=== PATIENT | female | born 1970 | race Caucasian/White ===

== ENCOUNTER 2016-11-25 14:17 | Emergency (ER) | payer BC ==
[2016-11-25 14:46] VITALS: BP 103/69; PULSE 93; TEMP 97.4; BMI 28.3
== END 2016-11-25 15:00 | disposition left against medical advice (07) ==
LOC: JER 14:17
DX: Z53.21 Procedure and treatment not carried out due to patient leaving prior to being seen by health care provider (principal)
CPT/HCPCS: 99281-25

== ENCOUNTER 2016-11-27 11:07 | Emergency (ER) | payer BC ==
[2016-11-27 12:05] VITALS: BP 104/61; PULSE 95; TEMP 98.6; BMI 28.3
--- NOTE | 2016-11-27 12:28 | PDOC ---
*Physical Exam - Vital Signs Last Vital Signs Temp Pulse Resp BP Pulse Ox 98.6 F 95 H 16 104/61 100 11/27/16 11:59 11/27/16 11:59 11/27/16 11:59 11/27/16 11:59 11/27/16 11:59 - Physical Exam Comments: 11/27/16 12:27 MIDLEVEL NOTE Pt seen by Midlevel Provider under my direct supervision. Pt interviewed and examined. Ancillary studies reviewed. I agree with plan as outlined by Midlevel Provider. 11/27/16 14:19 Patient feeling much better after fluid and medications On 11/25/16/she noted UTI symptoms, and she self medicated-she took 4 doses of Bactrim DS-she started herself on the medication when she was having UTI symptoms. Will switch to Macrobid Laboratory Results - last 24 hr 11/27/16 11/27/16 11/27/16 12:45 12:45 12:45 WBC 5.1 RBC 3.98 Hgb 12.3 Hct 36.7 MCV 92.3 MCHC 33.6 RDW 12.6 Plt Count 154 MPV 8.1 Neutrophils % 82.0 Lymphocytes % 7.0 L Monocytes % 4.0 Eosinophils % 2.0 Band Neutrophils 5.0 Sodium 136 Potassium 3.9 Chloride 105 Carbon Dioxide 24 Anion Gap 7 L BUN 6 L Creatinine 0.9 Creat Clearance w eGFR > 60 Random Glucose 91 Calcium 8.7 Magnesium 1.8 Total Bilirubin 0.3 AST 14 ALT 14 Alkaline Phosphatase 43 Total Protein 6.1 L Albumin 3.2 L Urine Color Yellow Urine Appearance Clear Urine pH 5.5 Ur Specific [place] >= 1.030 H Urine Protein Negative Urine Glucose (UA) Negative Urine Ketones Trace Urine Blood Trace H Urine Nitrite Negative Urine Bilirubin Negative Urine Urobilinogen 0.2 e.u/dl Ur Leukocyte Esterase Negative Urine RBC 0-3 Urine WBC 0-3 Ur Epithelial Cells Few Urine Bacteria Few Urine HCG, Qual Negative ED Treatment Course - LABORATORY CBC & Chemistry Diagram: 11/27/16 12:45 11/27/16 12:45 *DC/Admit/Observation/Transfer Diagnosis at time of Disposition: Dehydration UTI (urinary tract infection) Qualifiers: Qualified Code(s): N39.0 - Urinary tract infection, site not specified - Discharge Dispostion Disposition: HOME Condition at time of disposition: Stable - Prescriptions Prescriptions: Nitrofurantoin Monohyd/M-Cryst [Macrobid -] 100 mg PO BID #14 capsule - Patient Instructions Printed Discharge Instructions: DI for Urinary Tract Infection (UTI) Additional Instructions: rest, small frequent amounts of fluid throughout the day stop bactrim take macrobid as prescribed please follow up with your primary care physician within 5 days - Post Discharge Activity Work/School Note: Back to Work
[2016-11-27] MEDS ORDERED: KETOROLAC TROMETHAMINE 30 MG/1 ML VIAL IVPUSH ONE (12:32)
[2016-11-27] MEDS ORDERED: METOCLOPRAMIDE HCL INJECTION 10 MG/2 ML VIAL IVPB ONE (12:32)
[2016-11-27] MEDS ORDERED: SODIUM CHLORIDE 1,000 ML IV STA (12:32)
[2016-11-27] MEDS ORDERED: KETOROLAC TROMETHAMINE 30 MG/1 ML VIAL ONE (12:51)
[2016-11-27 13:16] LABS: MCHC 33.6 g/dl (32.0-36.0); MEAN CELL VOLUME 92.3 fl (80-96); MEAN PLT VOLUME 8.1 fl (7.5-11.1); PLATELET COUNT 154 K/MM3 (134-434); RDW 12.6 % (11.6-15.6); WHITE BLOOD COUNT 5.1 K/mm3 (4.0-10.0)
[2016-11-27 13:27] LABS: PH,URINE 5.5 (4.5-8); URINE APPEARANCE Clear; URINE BILIRUBIN Negative (NEGATIVE); URINE BLOOD TRACE (NEGATIVE); URINE COLOR YELLOW; URINE GLUCOSE (UA) Negative (NEGATIVE); URINE KETONE Trace (NEGATIVE); URINE LEUK ESTERASE Negative (NEGATIVE); URINE NITRITE Negative (NEGATIVE); URINE PROTEIN Negative (NEGATIVE); URINE RBC 0-3 /hpf (0-3); URINE UROBILINOGEN 0.2 E.U/dl (0.2-1.0)
[2016-11-27 13:28] LABS: URINE BACTERIA FEW /hpf (NEGATIVE); URINE WBC 0-3 (3-5)
[2016-11-27 13:36] LABS: ALBUMIN 3.2 g/dl (3.5-5.0); ALK PHOS 43 U/L (32-92); ANION GAP 7 (8-16); BILIRUBIN,TOTAL 0.3 mg/dl (0.2-1.0); CALCIUM 8.7 mg/dl (8.4-10.2); CO2 24 mmol/L (22-28); CREATININE 0.9 mg/dl (0.6-1.3); GLUCOSE,RANDOM 91 mg/dl (74-106); MAGNESIUM 1.8 mg/dL (1.8-2.4); SGOT/AST 14 U/L (10-42); SGPT/ALT 14 U/L (10-40); TOT PROT 6.1 g/dl (6.4-8.3)
--- NOTE | 2016-11-27 14:30 | PDOC ---
History of Present Illness - General Chief Complaint: Urinary Problem Stated Complaint: UTI Time Seen by Provider: 11/27/16 12:27 History Source: Patient - History of Present Illness Initial Comments: 11/27/16 14:27 patient is a 46y/o female with a past medical history of anxiety and depression. patient reports she developed lower back pain and urinary urgency on 11/25/16. she self medicated with bactrim. she reports the following she developed itiching to the eye that resolved. In addition, she reports fatigue and generalized bodyaches soon after that persists today patient denies any pruritis, sore throat, and rash. patient does reports headache to the left side of head which is similar to headaches of the past. 11/27/16 14:31 Past History - Past Medical History Allergies/Adverse Reactions: Allergies Allergy/AdvReac Type Severity Reaction Status Date / Time No Known Allergies Allergy Verified 11/27/16 11:12 Home Medications: Ambulatory Orders Bupropion HCl [Wellbutrin Sr] 150 mg PO DAILY 11/27/16 Methylphenidate HCl [Concerta] 36 mg PO DAILY 11/27/16 Nitrofurantoin Monohyd/M-Cryst [Macrobid -] 100 mg PO BID #14 capsule 11/27/16 Sulfamethoxazole/Trimethoprim [Bactrim DS -] 1 tab PO BID 11/27/16 Psychiatric Problems: Yes (ADHD, DEPRESSION) - Psycho/Social/Smoking Cessation Hx Anxiety: No Suicidal Ideation: No Smoking History: Never smoked Have you smoked in the past 12 months: No Number of Cigarettes Smoked Daily: 0 Information on smoking cessation initiated: No Hx Alcohol Use: No Drug/Substance Use Hx: No Substance Use Type: None Review of Systems - Review of Systems Able to Perform ROS?: Yes Constitutional: Yes: Malaise, Weakness ABD/GI: Yes: Nausea *Physical Exam - Vital Signs Last Vital Signs Temp Pulse Resp BP Pulse Ox 98.6 F 95 H 16 104/61 100 11/27/16 11:59 11/27/16 11:59 11/27/16 11:59 11/27/16 11:59 11/27/16 11:59 - Physical Exam General Appearance: Yes: Appropriately Dressed, Apparent Distress HEENT: positive: SORAIDA, Normal ENT Inspection, Normal Voice, Symmetrical, TMs Normal, Pharynx Normal Neck: positive: Trachea midline, Normal Thyroid, Supple Respiratory/Chest: positive: Lungs Clear, Normal Breath Sounds Cardiovascular: positive: Regular Rhythm, Regular Rate, S1, S2 Gastrointestinal/Abdominal: positive: Normal Bowel Sounds, Soft Musculoskeletal: positive: Normal Inspection. negative: CVA Tenderness, CVA Tenderness (R), CVA Tenderness (L) Extremity: positive: Normal Capillary Refill, Normal Inspection Integumentary: positive: Normal Color, Dry, Warm Neurologic: positive: circulation librarian II-XII NML intact, Fully Oriented, Alert, Normal Mood/ Affect, Normal Response, Motor Strength 03/14 ED Treatment Course - LABORATORY CBC & Chemistry Diagram: 11/27/16 12:45 11/27/16 12:45 - ADDITIONAL ORDERS Additional order review: Laboratory Results 11/27/16 11/27/16 12:45 12:45 Sodium 136 Potassium 3.9 Chloride 105 Carbon Dioxide 24 Anion Gap 7 L BUN 6 L Creatinine 0.9 Creat Clearance w eGFR > 60 Random Glucose 91 Calcium 8.7 Magnesium 1.8 Total Bilirubin 0.3 AST 14 ALT 14 Alkaline Phosphatase 43 Total Protein 6.1 L Albumin 3.2 L Urine Color Yellow Urine Appearance Clear Urine pH 5.5 Ur Specific [place] >= 1.030 H Urine Protein Negative Urine Glucose (UA) Negative Urine Ketones Trace Urine Blood Trace H Urine Nitrite Negative Urine Bilirubin Negative Urine Urobilinogen 0.2 e.u/dl Ur Leukocyte Esterase Negative Urine RBC 0-3 Urine WBC 0-3 Ur Epithelial Cells Few Urine Bacteria Few Urine HCG, Qual Negative 11/27/16 12:45 RBC 3.98 MCV 92.3 MCHC 33.6 RDW 12.6 MPV 8.1 Neutrophils % Y Lymphocytes % Y - Medications Given in the ED: ED Medications Discontinued Medications Generic Name Dose Route Start Last Admin Trade Name Freq PRN Reason Stop Dose Admin Sodium Chloride 1,000 mls @ 1,000 mls/hr 11/27/16 12:32 11/27/16 13:06 Normal Saline - IV 11/27/16 13:31 1,000 mls/hr ASDIR STA Administration Ketorolac Tromethamine 30 mg 11/27/16 12:32 11/27/16 13:07 Toradol Injection - IVPUSH 11/27/16 12:33 30 mg ONCE ONE Administration Metoclopramide HCl 10 mg 11/27/16 12:32 11/27/16 13:08 Reglan Injection - IVPB 11/27/16 12:33 10 mg ONCE ONE Administration Progress Note - Progress Note Progress Note: patient is a 46 y/o female that presents with generalized bodyaches, nausea and *DC/Admit/Observation/Transfer Diagnosis at time of Disposition: Dehydration UTI (urinary tract infection) Qualifiers: Urinary tract infection type: site unspecified Hematuria presence: without hematuria Qualified Code(s): N39.0 - Urinary tract infection, site not specified - Discharge Dispostion Disposition: HOME Condition at time of disposition: Stable Admit: No - Prescriptions Prescriptions: Nitrofurantoin Monohyd/M-Cryst [Macrobid -] 100 mg PO BID #14 capsule - Patient Instructions Printed Discharge Instructions: DI for Urinary Tract Infection (UTI) Additional Instructions: rest, small frequent amounts of fluid throughout the day stop bactrim take macrobid as prescribed please follow up with your primary care physician within 5 days - Post Discharge Activity Work/School Note: Back to Work
== END 2016-11-27 14:39 | disposition home or self-care (01) ==
LOC: FER 11:07
PROC: 3E0333Z Introduction of Anti-inflammatory into Peripheral Vein, Percutaneous Approach (ICD-10-PCS; principal; 2016-11-27)
PROC: 3E033GC Introduction of Other Therapeutic Substance into Peripheral Vein, Percutaneous Approach (ICD-10-PCS; 2016-11-27)
PROC: 3E0337Z Introduction of Electrolytic and Water Balance Substance into Peripheral Vein, Percutaneous Approach (ICD-10-PCS; 2016-11-27)
DX: N39.0 Urinary tract infection, site not specified (principal); E86.0 Dehydration; F41.8 Other specified anxiety disorders
CPT/HCPCS: 36415; 80053; 81003; 81015; 83735; 84703; 85025; 87086; 99283-25

== ENCOUNTER 2018-03-20 20:52 | Emergency (ER) | payer BC ==
[2018-03-20 21:08] LABS: PH,URINE 5.5 (4.5-8); URINE APPEARANCE Clear; URINE BILIRUBIN Negative (NEGATIVE); URINE GLUCOSE (UA) Negative (NEGATIVE); URINE KETONE Trace (NEGATIVE); URINE LEUK ESTERASE Negative (NEGATIVE); URINE NITRITE Positive (NEGATIVE); URINE PROTEIN Negative (NEGATIVE); URINE UROBILINOGEN 0.2 (0.2-1.0)
[2018-03-20 21:10] LABS: URINE COLOR YELLOW
[2018-03-20 21:12] VITALS: BP 111/60; PULSE 93; TEMP 97.3; BMI 28.3
[2018-03-20] MEDS ORDERED: NITROFURANTOIN MACROCRYSTAL 50 MG CAPSULE (FP) ONE (21:32)
--- NOTE | 2018-03-20 21:34 | PDOC ---
History of Present Illness - General History Source: Patient Exam Limitations: No Limitations - History of Present Illness Initial Comments: 03/20/18 21:52 The patient is a 47 year old female with a significant past medical history of UTIs, ADHD and depression who presents to the emergency department for evaluation of left eye and throat irritation since 6pm. The patient reports "scratchy left eye and throat" developed 1 hour after taking Bactrim around 5: 15pm for recently diagnosed UTI. The patient reports previous reaction to Bactrim for UTI 3-4 months ago with similar onset of symptoms, which remitted after a few hours. She states her concern for an allergic reaction prompted her to visit the ED for further evaluation. At presentation, the patient reports the scratching is in remission. She reports associated symptoms of headache and dysuria. The patient denies chest pain, abdominal pain, cough, shortness of breath, and dizziness. Denies fevers, chills, nausea, vomiting, diarrhea, and constipation. Denies urinary frequency, urgency, and hematuria. Allergies: NKDA Past surgical history: , tonsils, breast biopsy. Social history: No reported cigarette, alcohol, or drug use. PCP: Dr. Blanquita Wilde ([phone]) <Ayo Willis - Last Filed: 03/20/18 21:52> <Dave Sousa - Last Filed: 03/21/18 01:34> - General Chief Complaint: Urinary Problem Stated Complaint: UTI/MALAISE Past History <Ayo Willis - Last Filed: 03/20/18 21:52> - Past Medical History COPD: No Psychiatric Problems: Yes (ADHD, DEPRESSION) - Suicide/Smoking/Psychosocial Hx Smoking History: Never smoked Have you smoked in the past 12 months: No Number of Cigarettes Smoked Daily: 0 Hx Alcohol Use: No Drug/Substance Use Hx: No Substance Use Type: None <Dave Sousa - Last Filed: 03/21/18 01:34> - Past Medical History Allergies/Adverse Reactions: Allergies Allergy/AdvReac Type Severity Reaction Status Date / Time No Known Allergies Allergy Verified 11/27/16 11:12 Home Medications: Ambulatory Orders Bupropion HCl [Wellbutrin Sr] 150 mg PO DAILY 11/27/16 Gabapentin [Neurontin] 100 mg PO HS 03/20/18 Nitrofurantoin Monohyd/M-Cryst [Macrobid -] 100 mg PO BID #14 capsule 03/20/18 Review of Systems - Review of Systems Able to Perform ROS?: Yes Comments:: GENERAL/CONSTITUTIONAL: No fever or chills. No weakness. HEAD, EYES, EARS, NOSE AND THROAT: (+)Scratchy left eye. (+)Scratchy throat. No change in vision. No ear pain or discharge. CARDIOVASCULAR: No chest pain or shortness of breath. RESPIRATORY: No cough, wheezing, or hemoptysis. GASTROINTESTINAL: No nausea, vomiting, diarrhea or constipation. GENITOURINARY: (+)Dysuria. No urinary frequency or change in urination. MUSCULOSKELETAL: No joint or muscle swelling or pain. No neck or back pain. SKIN: No rash NEUROLOGIC: (+)Headache. No vertigo, loss of consciousness, or change in strength/sensation. ENDOCRINE: No increased thirst. No abnormal weight change. HEMATOLOGIC/LYMPHATIC: No anemia, easy bleeding, or history of blood clots. ALLERGIC/IMMUNOLOGIC: No hives or skin allergy. <Ayo Willis - Last Filed: 03/20/18 21:52> *Physical Exam - Vital Signs Last Vital Signs Temp Pulse Resp BP Pulse Ox 97.3 F L 93 H 16 111/60 98 03/20/18 20:53 03/20/18 20:53 03/20/18 20:53 03/20/18 20:53 03/20/18 20:53 - Physical Exam Comments: GENERAL: Awake, alert, and fully oriented, in no acute distress HEAD: No signs of trauma EYES: (+)injected conjunctiva. PERRLA, EOMI, sclera anicteric. ENT: Auricles normal inspection, hearing grossly normal, nares patent, oropharynx clear without exudates. Moist mucosa NECK: Normal ROM, supple, no lymphadenopathy, JVD, or masses LUNGS: Breath sounds equal, clear to auscultation bilaterally. No wheezes, and no crackles HEART: Regular rate and rhythm, normal S1 and S2, no murmurs, rubs or gallops ABDOMEN: Soft, nontender, normoactive bowel sounds. No guarding, no rebound. No masses EXTREMITIES: Normal range of motion, no edema. No clubbing or cyanosis. No cords, erythema, or tenderness NEUROLOGICAL: Cranial nerves II through XII grossly intact. Normal speech, normal gait SKIN: Warm, Dry, normal turgor, no rashes or lesions noted. <Ayo Willis - Last Filed: 03/20/18 21:52> - Vital Signs Last Vital Signs Temp Pulse Resp BP Pulse Ox 97.3 F L 93 H 16 111/60 98 03/20/18 20:53 03/20/18 20:53 03/20/18 20:53 03/20/18 20:53 03/20/18 20:53 <Dave Sousa - Last Filed: 03/21/18 01:34> ED Treatment Course - ADDITIONAL ORDERS Additional order review: Laboratory Results 03/20/18 03/20/18 21:00 21:00 Urine Color Yellow Urine Appearance Clear Urine pH 5.5 Ur Specific [place] 1.020 Urine Protein Negative Urine Glucose (UA) Negative Urine Ketones Trace Urine Blood Negative Urine Nitrite Positive Urine Bilirubin Negative Urine Urobilinogen 0.2 Ur Leukocyte Esterase Negative Urine HCG, Qual Negative - Medications Given in the ED: ED Medications Discontinued Medications Generic Name Dose Route Start Last Admin Trade Name Locq PRN Reason Stop Dose Admin Nitrofurantoin Macrocrystals 200 mg 03/20/18 21:45 03/20/18 21:35 Macrodantin - PO 200 mg ONCE JEZ Administration <Ayo Willis - Last Filed: 03/20/18 21:52> - ADDITIONAL ORDERS Additional order review: Laboratory Results 03/20/18 03/20/18 21:00 21:00 Urine Color Yellow Urine Appearance Clear Urine pH 5.5 Ur Specific [place] 1.020 Urine Protein Negative Urine Glucose (UA) Negative Urine Ketones Trace Urine Blood Negative Urine Nitrite Positive Urine Bilirubin Negative Urine Urobilinogen 0.2 Ur Leukocyte Esterase Negative Urine HCG, Qual Negative <Dave Sousa - Last Filed: 03/21/18 01:34> Medical Decision Making - Medical Decision Making 03/21/18 01:34 ? allg rxn to bactrim no rx for allg as symptom have mostly resolved switch abx to macrobid <Dave Sousa - Last Filed: 03/21/18 01:34> *DC/Admit/Observation/Transfer - Attestations Scribe Attestion: Documentation prepared by Ayo Willis, acting as medical anthropologist for Dave Sousa MD. <Ayo Willis - Last Filed: 03/20/18 21:52> <Dave Sousa - Last Filed: 03/21/18 01:34> Diagnosis at time of Disposition: UTI (urinary tract infection) Qualifiers: Urinary tract infection type: acute cystitis Hematuria presence: without hematuria Qualified Code(s): N30.00 - Acute cystitis without hematuria - Discharge Dispostion Disposition: HOME Condition at time of disposition: Stable - Prescriptions Prescriptions: Nitrofurantoin Monohyd/M-Cryst [Macrobid -] 100 mg PO BID #14 capsule - Referrals Referrals: Blanquita Wilde MD [Primary Care Provider] - - Patient Instructions - Post Discharge Activity
[2018-03-20] MEDS ORDERED: NITROFURANTOIN MACROCRYSTAL 50 MG CAPSULE (FP) PO SCH (21:45)
== END 2018-03-20 21:37 | disposition home or self-care (01) ==
LOC: FER 20:52
DX: N30.00 Acute cystitis without hematuria (principal); F90.9 Attention-deficit hyperactivity disorder, unspecified type; F32.9 Major depressive disorder, single episode, unspecified
CPT/HCPCS: 81003; 84703; 87086; 99281-25

== ENCOUNTER → 2018-07-21 | Day surgery (SDC) | payer BC ==
[~2018-07-21] MED LIST: DEXAMETHASONE SOD PHOSPHATE 4 MG/1 ML VIAL ONE; KETOROLAC TROMETHAMINE 30 MG/1 ML VIAL ONE; LIDOCAINE HCL 2% JELLY (5 ML/TUBE) ONE; LIDOCAINE HCL/PF 2% SDV 5ML VIAL ONE; MIDAZOLAM HCL 2 MG/2 ML SINGLE DOSE VIAL ONE; ONDANSETRON 4 MG/2 ML VIAL ONE; PROPOFOL 20 ML ONE
--- NOTE | 2018-07-21 16:20 | OP ---
DATE OF OPERATION: 07/21/2018 PREOPERATIVE DIAGNOSES: 1. Right breast mass at 9 o'clock, 1 cm from the nipple. 2. Left breast mass at 11 o'clock, 8 cm from the nipple. POSTOPERATIVE DIAGNOSES: 1. Right breast mass at 9 o'clock, 1 cm from the nipple. 2. Left breast mass at 11 o'clock, 8 cm from the nipple. PROCEDURE: Bilateral ultrasound-guided core biopsies with clip placement. ANESTHESIA: Local. ATTENDING SURGEON: Yasmin Martinez MD ESTIMATED BLOOD LOSS: Minimal. COMPLICATIONS: None. DESCRIPTION OF PROCEDURE: Patient was made aware of the risks and benefits of the procedure and consented. The left side was approached first. Under sterile conditions with 1% lidocaine for local anesthesia, a small anshu was made in the skin. Using a 13-gauge suction biopsy device biopsy via lateral approach, multiple cores were obtained and submitted to Pathology. Likewise, under ultrasound guidance, a U-shaped clip was placed into the biopsy region and well tolerated by the patient. Steri-Strips and sterile bandage were applied. The right side was then approached using a separate setup and gloves. Under sterile conditions with 1% lidocaine for local anesthesia, a small anshu was made in the skin. Using a 10-gauge suction biopsy device, under ultrasound guidance, multiple cores were obtained and submitted to Pathology completely removing the index lesion. Likewise, under ultrasound guidance, a bowtie clip was placed into the biopsy region. Steri-Strips and a sterile bandage were applied. Patient tolerated the procedure well. We will contact her with results. YASMIN MARTINEZ M.D. [id number]
--- NOTE | 2018-07-22 16:33 | PATH ---
Surgical Pathology Report Patient Name: MICHELE CHAMPAGNE [facility]. Rec. #: [id number] /Age/Gender: 1970 (Age: 48) / F Account: [id number] Location: [facility] Taken: 07/21/2018 Received: 07/21/2018 Reported: 07/22/2018 Physicians: Yasmin Martinez M.D. Specimen(s) Received A: BREAST CORE BIOPSY LEFT 11:00 8 CMFN B: BREAST CORE BIOPSY RIGHT 9:00 1 CMFN Clinical History No Nonpalpable lesion 07/21/2018 Ultrasound findings: Suspicious Final Diagnosis A. LEFT BREAST, 11:00, 8 CM FN, CORE BIOPSY: BREAST TISSUE WITH STROMAL FIBROSIS. B. RIGHT BREAST, 9:00, 1 CM FN, CORE BIOPSY: BREAST TISSUE SHOWING INTRADUCTAL PAPILLARY LESION WITH FOCAL SCLEROSIS AND ATYPIA. MICROCALCIFICATIONS PRESENT. Comment: Complete excision for definite classification of the lesion is suggested. Immunohistochemical stains performed and interpreted at [facility] show the following results: smooth muscle myosin heavy chain and p63 highlighted the myoepithelial cell layer surrounding the ducts in the sclerosing area. Electronically Signed Lisa Hobbs M.D. Gross Description A. Received in formalin labeled "left breast biopsy 11:00, 8 CMFN," is a 1.5 x 0.9 x 0.2 cm aggregate of multiple champagne-yellow, irregular to cylindrical portions of fibroadipose tissue. The formalin is filtered and the specimen is entirely submitted in one cassette. B. Received in formalin labeled "right breast biopsy 9:00, 1 CMFN," is a 2.4 x 1.6 x 0.3 cm aggregate of multiple champagne-yellow, irregular to cylindrical portions of fibroadipose tissue. The formalin is filtered and the specimen is entirely submitted in one cassette. Time to formalin fixation: Less than one minute Total formalin fixation time: Approximately 8 hours. 07/21/2018
== END | disposition home or self-care (01) ==
LOC: FRADUS-SUR 13:58
PROVIDERS: ATTEND Surgery Surgical Oncology
PROC: 0HBV3ZX Excision of Bilateral Breast, Percutaneous Approach, Diagnostic (ICD-10-PCS; principal; 2018-07-21)
DX: D24.2 Benign neoplasm of left breast (principal); N60.32 Fibrosclerosis of left breast; N64.89 Other specified disorders of breast; N63.22 Unspecified lump in the left breast, upper inner quadrant; N63.10 Unspecified lump in the right breast, unspecified quadrant
CPT/HCPCS: 19083; 19084; 87899; 88305-TC; 88341-TC; 88342-TC; A4648

== ENCOUNTER 2018-07-30 12:17 | Day surgery (SDC) | payer BC ==
[2018-07-24 13:51] VITALS: BMI 27.2
--- NOTE | 2018-07-28 09:34 | HP ---
Admitting History and Physical - Primary Care Physician PCP: Carlitos Grande - Admission Chief Complaint: right breast atypia History of Present Illness: 48 yo female underwent an MRI on 07/17/2018 and US which showed a right 9 and a left 11 density. The patient underwent US core bxs on 07/21 which was c/w right intraductal papillary lesion with atypia. Left core bx was negative. Patient is now presenting for a right WE with NL. History Source: Patient Limitations to Obtaining History: No Limitations - Past Medical History ...LMP Comment: 07/10/18 ...: No Psych: Yes: Depression - Past Surgical History Past Surgical History: Yes: - Smoking History Smoking history: Never smoked Have you smoked in the past 12 months: No Aproximately how many cigarettes per day: 0 - Alcohol/Substance Use Hx Alcohol Use: Yes (1 GLASS WINE DAILY) Home Medications - Allergies Allergies/Adverse Reactions: Allergies Allergy/AdvReac Type Severity Reaction Status Date / Time morphine AdvReac Severe Vomiting Verified 07/24/18 14:09 - Home Medications Home Medications: Ambulatory Orders Bupropion HCl [Wellbutrin Sr] 150 mg PO DAILY 11/27/16 Gabapentin [Neurontin] 100 mg PO HS 03/20/18 Clonazepam [Klonopin] 1 mg PO PRN PRN 07/24/18 Methylphenidate HCl [Concerta] 27 mg PO DAILY 07/24/18 Family Disease History - Family Disease History Family Disease History: CA: Father (bladder cancer), Mother (breast cancer at 42 ) Review of Systems - Review of Systems Constitutional: reports: No Symptoms Cardiovascular: reports: No Symptoms Respiratory: reports: No Symptoms Physical Examination Constitutional: Yes: Well Nourished Breast(s): Yes: Other (Full C-cup breasts with no skin changes or nipple discharge. Palpable left upper inner quad ? lipoma approx 3 cm. No adenopathy noted bilaterally.) Problem List - Problems (1) Atypical ductal hyperplasia of right breast Code(s): N60.91 - UNSPECIFIED BENIGN MAMMARY DYSPLASIA OF RIGHT BREAST Assessment/Plan Plan: Right breast WE with NL
[2018-07-30] MEDS ORDERED: DEXTROSE 5%-0.45% SALINE 1,000 ML IV SCH (14:30)
[2018-07-30] MEDS ORDERED: ONDANSETRON 4 MG/2 ML VIAL IVPUSH PRN ×2 (14:30→15:52)
[2018-07-30] MEDS ORDERED: KETOROLAC TROMETHAMINE 30 MG/1 ML VIAL IVPUSH PRN (14:30)
[2018-07-30] MEDS ORDERED: BUPIVACAINE HCL/PF 2.5 MG/ML - 30 ML VIAL IJ ONE (15:01)
[2018-07-30] MEDS ORDERED: oxyCODONE HCL 5 MG TABLET PO PRN ×2 (15:52)
[2018-07-30] MEDS ORDERED: PROMETHAZINE HCL 25 MG/1 ML VIAL IVPB PRN (15:52)
[2018-07-30 16:56] VITALS: TEMP 97.8
[2018-07-30] MEDS ORDERED: oxyCODONE HCL 5 MG TABLET ONE (17:25)
[2018-07-30 18:03] VITALS: BP 109/73; PULSE 73
--- NOTE | 2018-07-31 08:53 | OP ---
DATE OF OPERATION: 07/30/2018 PREOPERATIVE DIAGNOSIS: Right breast atypia. POSTOPERATIVE DIAGNOSIS: Right breast atypia, status post wide excision. PROCEDURE: Right breast partial mastectomy with mammographic needle localization. ANESTHESIA: General laryngeal mask airway anesthesia. PRIMARY SURGEON: Kianna Grande MD CUSTOMER LOYALTY REPRESENTATIVE: JOAN Garcia COMPLICATIONS: There were no complications. INDICATIONS: Briefly, the patient is a 48-year-old premenopausal white female of Ashkenazi Worship heritage whose mother had breast cancer at age 42. The patient has a history of bilateral breast biopsies and has a Poppy model lifetime risk of breast cancer 29.9%. She gets yearly mammography, ultrasound, and MRIs. An MRI performed at [facility] on July 17, 2018, showed a right breast 9 o'clock and left breast 11 o'clock density, and ultrasound directed in these areas showed some findings, and ultrasound core biopsies showed a papilloma with atypia on the right side and benign pathology on the left. She was advised on undergoing a wide excision with needle localization in this right breast 9 o'clock region. DESCRIPTION OF PROCEDURE: She was brought in through ambulatory surgery on July 30, 2018, and underwent a mammographic needle localization. This right breast 9 o'clock density was brought to the holding area. In the holding area, site verification was made and informed consent was obtained. She was brought into the operating room and laid on the OR table in the supine position. Venodynes were placed on the lower extremities. She had no IV antibiotics given the small nature of the incision. She underwent general laryngeal mask airway anesthesia, and the right breast was sterilely prepped and draped in the usual fashion with the wire prepped in the field. Once the patient was properly anesthetized, time-out was accomplished, and a periareolar incision was made around the lateral aspect of the right breast nipple areolar complex. Dissection was undertaken around the needle localization, and the breast tissue was completely removed from around the wire with the wire intact in the middle of the specimen. The specimen was oriented with a long-lateral short-superior suture, and specimen radiograph showed removal of the clip in question. However, the clip was fairly close to the anterior margin. For this reason, a separate margin was taken on the anterior side, and a stitch was used to kevin the biopsy cavity side. This was sent separately as anterior margin. Hemostasis was achieved. The breast parenchyma was then reapproximated using 2-0 plain suture. The skin was closed using interrupted 3-0 deep dermal Vicryl suture and a running 4-0 subcuticular Biosyn suture. Mastisol and Steri-Strips were applied over the wound with a compressive dressing placed over this. The patient tolerated the procedure well without difficulty, and laryngeal mask airway tube was removed at the end of the case. She will be recovered in the post-anesthesia care unit, to be immediately discharged home the same day once discharge criteria are met. She is to follow up in the office in 1 week for formal wound pathology check. All sponge and needle counts were correct at the end of the case, and estimated blood loss was minimal. KIANNA GRANDE M.D. [id number]
--- NOTE | 2018-08-05 16:33 | PATH ---
Surgical Pathology Report Patient Name: MICHELE CHAMPAGNE [facility]. Rec. #: [id number] /Age/Gender: 1970 (Age: 48) / F Account: [id number] Location: [facility] AMBULATORY Taken: 07/30/2018 Received: 07/30/2018 Reported: 08/05/2018 Physicians: Carlitos Grande M.D. Specimen(s) Received A: RIGHT BREAST WIDE EXCISION B: ANTERIOR MARGIN RIGHT BREAST Clinical History Atypia on core biopsy Final Diagnosis A. breast, right, wide excision: lobular carcinoma in situ (LCIS), classical type. (See note) INTRADUCTAL PAPILLOMA AND FIBROCYSTIC CHANGES. PRIOR BIOPSY SITE CHANGES ARE PRESENT. Note: Immunostains performed at [facility] show the following results: The foci of LCIS are negative for E-Cadherin which supports lobular phenotype (performed on blocks A2, A4, A5). Myoepithelial immunohistochemical markers (SMM-HC and p63, performed on block A5) demonstrate the presence of myoepithelial cells in a focus of LCIS with sclerosis. This finding supports the diagnosis and aids in ruling out the presence of invasion. B. breast, right, anterior margin, excision: Benign breast tissue showing prior biopsy site changes. Electronically Signed Mi Quiroz M.D. Gross Description A. Received in formalin, labeled "right breast wide excision," is a 4.0 x 3.2 x 1.8 cm. champagne-yellow, irregular, portion of fibroadipose tissue. There is a needle localization wire separately received within the same container which appears to have detached from the specimen. There is a short suture marking the superior aspect and a long suture marking the lateral aspect, per the surgeon. There is no skin present. The specimen is inked as follows: superior and lateral blue; inferior green; medial yellow; anterior red; deep black. The specimen is serially sectioned from superior to inferior. Sectioning reveals diffuse dense white fibrous tissue. No definitive mass is identified. The specimen is entirely and sequentially submitted in 9 cassettes with the superior margin in cassette 1 and the inferior margin in 9. Time to formalin fixation: 2 minutes Total formalin fixation time: Approximately 27 hours. B. Received in formalin labeled "anterior margin right breast," is a 2.7 x 2.4 x 1.3 cm portion of fibroadipose tissue with a suture marking the biopsy cavity side, per the surgeon. The new margin is inked blue and the specimen is serially sectioned. The specimen is entirely and sequentially submitted in 4 cassettes. 07/31/2018 [facility]07/31/2018
== END 2018-07-30 18:04 | disposition home or self-care (01) ==
LOC: FASU 12:17
PROVIDERS: ATTEND Surgery Surgical Oncology
PROC: 0HBT0ZZ Excision of Right Breast, Open Approach (ICD-10-PCS; principal; 2018-07-30 14:55)
DX: D05.01 Lobular carcinoma in situ of right breast (principal); D24.1 Benign neoplasm of right breast; N60.91 Unspecified benign mammary dysplasia of right breast
CPT/HCPCS: 19281; 84703; 88307-TC; 88342-TC; 94760

== ENCOUNTER 2020-06-04 09:52 | Emergency (ER) | payer BC ==
--- NOTE | 2020-06-04 11:01 | TELE ---
HPI Do you have fever,cough or shortness of breath?: No - General Reason For Visit: COVID TESTING History Source: Patient Exam Limitations: No Limitations - History of Present Illness 06/04/20 10:55 49-year-old female evaluated via virtual visit denies past medical history requesting COVID swab. 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 Patient believes this is a false positive given her son nor anyone in the household has symptoms. ROS: as above PE: Speaking full sentences No acute respiratory distress Alert and oriented appropriately Past History - Medical History Allergies/Adverse Reactions: Allergies Allergy/AdvReac Type Severity Reaction Status Date / Time morphine AdvReac Severe Vomiting Verified 07/24/18 14:09 Home Medications: Ambulatory Orders Bupropion HCl [Wellbutrin Sr] 150 mg PO DAILY 11/27/16 Gabapentin [Neurontin] 100 mg PO HS 03/20/18 Clonazepam [Klonopin] 1 mg PO PRN PRN 07/24/18 Methylphenidate HCl [Concerta] 27 mg PO DAILY 07/24/18 Oxycodone HCl/Acetaminophen [Percocet 5-325 mg Tablet] 1 tab PO Q6H PRN #7 tablet MDD 4 07/30/18 Anemia: No Asthma: No Cancer: No Cardiac Disorders: No CVA: No COPD: No CHF: No Dementia: No Diabetes: No GI Disorders: No Disorders: Yes (? INTERSTITIAL CYSTITIS) HTN: No Hypercholesterolemia: No Liver Disease: No Psychiatric Problems: Yes (ADHD, DEPRESSION) Seizures: No Thyroid Disease: No - Surgical History Abdominal Surgery: Yes (SEE BELOW) Appendectomy: No Cardiac Surgery: No Cholecystectomy: No Lung Surgery: No Orthopedic Surgery: No - Psycho-Social/Smoking History Smoking History: Never smoked Have you smoked in the past 12 months: No Number of Cigarettes Smoked Daily: 0 - Medical Decision Making 06/04/20 11:01 49-year-old female evaluated via virtual visit denies past medical history requesting COVID swab. 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 Patient believes this is a false positive given her son nor anyone in the household has symptoms. covid swab ordered Discharge Diagnosis at time of Disposition: Counseled about COVID-19 virus infection, Suspected 2019 novel coronavirus infection - Referrals - Patient Instructions Discharge Instructions: [facility] Instructions, [facility] COVID-19 Isolation Protocol - Discharge Disposition: HOME Condition at time of Disposition: Stable
== END 2020-06-04 12:20 | disposition home or self-care (01) ==
LOC: JVIRT 09:52
DX: Z03.818 Encounter for observation for suspected exposure to other biological agents ruled out (principal)
CPT/HCPCS: Q3014-GT; U0003